=== PATIENT | female | born 1985 | race Hispanic/Latino ===

== ENCOUNTER 2024-08-03 19:34 | Emergency (ER) | payer OTHER, SELFPAY ==
[2024-08-03 19:42] VITALS: BP 164/99; PULSE 77; RESP 16; TEMP 36.9; O2SAT 100
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
== END 2024-08-03 20:05 | disposition home or self-care (01) ==
PROVIDERS: Emergency Provider Nurse Practitioner Family; PCP Family Medicine
DX: M25.512 Pain in left shoulder (principal); Z90.13 Acquired absence of bilateral breasts and nipples
CPT/HCPCS: 99213; G0463